=== PATIENT | male | born 1980 | race Caucasian/White ===

== ENCOUNTER 2020-07-14 18:16 | Emergency (ER) | payer MEDICAID ==
[~2020-07-14] VITALS: Ht 180.3 cm; Wt 103.0 kg
[2020-07-14] MEDS ORDERED: MORPHINE SULFATE 4 MG/ML, 1ML ONE ×2 (18:45→19:18)
[2020-07-14] MEDS ORDERED: ONDANSETRON 2MG/ML, 2ML ONE (18:45)
[2020-07-14] MEDS: MORPHINE SULFATE 4 MG/ML, 1ML IVPush PRN ×2 (18:48→19:20)
--- NOTE | 2020-07-14 18:55 | NUR ---
PIV PLACED BY [facility] GUIDE. MEDS ADMIN PER MAY. PT GOING TO XRAY.
[2020-07-14] MEDS ORDERED: ONDANSETRON 2MG/ML, 2ML IVPush ONE (19:00)
[2020-07-14] MEDS ORDERED: SODIUM CHLORIDE FLUSH 10ML SYR IVF ONE (19:00)
--- NOTE | 2020-07-14 19:23 | NUR ---
PT AMBULATED TO RESTROOM WITH STEADY GAIT TO PROVIDE URINE SAMPLE. UA COLLECTED AND SENT TO LAB. PT C/O 10/10 PAIN. 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 OXYGEN APPLIED FOR SAFETY. PT CONNECTED TO MONITORING.
[2020-07-14 19:38] LABS: MICROSCOPIC AUTO
--- NOTE | 2020-07-14 20:10 | NUR ---
ALL RESULTS ARE BACK AT THIS TIME. CHART UP FOR RECHECK.
--- NOTE | 2020-07-14 20:20 | NUR ---
PT STATES PAIN IS BETTER.
--- NOTE | 2020-07-14 20:53 | NUR ---
ERMD AT BEDSIDE TO UPDATE PT ON POC.
[2020-07-14] MEDS ORDERED: KETOROLAC 30 MG/1 ML IVPush ONE (21:00)
[2020-07-14] MEDS ORDERED: KETOROLAC 30 MG/1 ML ONE (21:02)
--- NOTE | 2020-07-14 21:07 | NUR ---
MEDS ADMIN PER MAY.
[2020-07-14 21:39] VITALS: BP 122/74
== END 2020-07-14 21:41 | disposition home or self-care (01) ==
LOC: ED 18:46
DX: N20.1 Calculus of ureter (principal); R31.9 Hematuria, unspecified; F17.200 Nicotine dependence, unspecified, uncomplicated
CPT/HCPCS: 74018; 81001; 96374; 96375; 96376; 99284; J1885; J2270; J2405

== ENCOUNTER 2020-11-16 06:30 | Inpatient (IN) | payer MEDICAID ==
[~2020-11-16] VITALS: Ht 180.3 cm; Wt 95.4 kg
[2020-11-16] MEDS ORDERED: CHLORHEXIDINE 15 ML UDC ONE (06:58)
[2020-11-16] MEDS ORDERED: LACTATED RINGERS 1,000 ML IV SCH (07:00)
[2020-11-16] MEDS ORDERED: CHLORHEXIDINE 15 ML UDC PO ONE (07:00)
[2020-11-16 07:42] VITALS: BP 99/68
[2020-11-16] MEDS ORDERED: NONE PER PT (07:42)
[2020-11-16] MEDS ORDERED: FENTANYL PF 250 MCG/5ML ONE (08:11)
[2020-11-16] MEDS ORDERED: PROPOFOL 10 MG/ML, 20ML ONE (08:12)
[2020-11-16] MEDS ORDERED: BUPIVACAINE/PF 0.25% ONE ×2 (08:12)
[2020-11-16] MEDS ORDERED: CEFAZOLIN 1,000 MG ONE (08:12)
[2020-11-16] MEDS ORDERED: GLYCOPYRROLATE 0.2MG/1ML, 5ML ONE (08:12)
[2020-11-16] MEDS ORDERED: NEOSTIGMINE 1 MG/ML, 10ML ONE (08:12)
[2020-11-16] MEDS ORDERED: ROCURONIUM 10MG/ML,5ML ONE ×2 (08:12→10:54)
[2020-11-16] MEDS ORDERED: EPINEPHRINE 1 MG/ML, 1ML ONE (09:36)
[2020-11-16] MEDS ORDERED: BUPIVACAINE/PF 0.5% ONE (09:36)
[2020-11-16] MEDS ORDERED: morphine SULFATE 10 MG/ML, 1ML IVPush PRN (10:00)
[2020-11-16] MEDS ORDERED: MEPERIDINE/PF 25MG/0.5ML IVPush PRN (10:00)
[2020-11-16] MEDS ORDERED: HYDROmorphone 1 MG/ML, 1ML INJ IVPush PRN (10:00)
[2020-11-16] MEDS ORDERED: FENTANYL PF 100 MCG/2ML IV PRN (10:00)
[2020-11-16] MEDS ORDERED: LABETALOL 5MG/ML, 20ML IV PRN (10:00)
[2020-11-16] MEDS ORDERED: hydrALAzine 20 MG/ML, 1ML IV PRN (10:00)
[2020-11-16] MEDS ORDERED: OXYcodone 5 MG/5 ML ORAL.SOL UDC PO PRN (10:00)
[2020-11-16] MEDS ORDERED: ACETAMINOPHEN 325 MG TABLET PO PRN (10:00)
[2020-11-16] MEDS ORDERED: ONDANSETRON 2MG/ML, 2ML IVPush PRN (10:00)
[2020-11-16] MEDS ORDERED: MIDAZOLAM 1 MG/ML, 2ML ONE (10:20)
[2020-11-16] MEDS ORDERED: FENTANYL PF 100 MCG/2ML ONE (13:51)
[2020-11-16] MEDS ORDERED: OXYcodone 5 MG/5 ML ORAL.SOL UDC ONE ×2 (13:51→13:59)
[2020-11-16] MEDS ORDERED: ACETAMINOPHEN 650 MG/20.3 ML UDC ONE (13:52)
[2020-11-16] MEDS ORDERED: KETOROLAC 30 MG/1 ML ONE (16:22)
[2020-11-16] MEDS: KETOROLAC 30 MG/1 ML IVPush SCH (16:26)
[2020-11-16] MEDS: CEFTRIAXONE 2 GM in SODIUM CHLORIDE 0.9% 50 ML IVPB SCH (16:26)
[2020-11-16 19:10] VITALS: BP 90/60
[2020-11-16] MEDS ORDERED: OXYcodone IR 5MG TABLET PO PRN (19:30)
[2020-11-16] MEDS ORDERED: KETOROLAC 30 MG/1 ML IVPush SCH (19:30)
[2020-11-16] MEDS ORDERED: DIPHENHYDRAMINE 50 MG/ML, 1ML IVPush PRN (19:30)
[2020-11-16] MEDS ORDERED: HALOPERIDOL 5 MG/ML IVPush PRN (19:30)
[2020-11-16] MEDS ORDERED: ONDANSETRON 2MG/ML, 2ML IV PRN (19:30)
[2020-11-16] MEDS ORDERED: DEXAMETHASONE 4 MG/ML, 1ML IVPush PRN (19:30)
[2020-11-16] MEDS ORDERED: LORazepam 1MG TABLET PO PRN (19:30)
[2020-11-16] MEDS ORDERED: CEFTRIAXONE 2 GM in DEXTROSE 5% 50 ML IV SCH (19:30)
[2020-11-16] MEDS ORDERED: LORazepam 2 MG/ML, 1ML IVPush PRN (19:30)
[2020-11-16] MEDS ORDERED: SCOPOLAMINE PATCH, 1.5MG PATCH.TD72 TD PRN (19:30)
[2020-11-16] MEDS ORDERED: TRAZODONE 50MG TABLET PO PRN (19:30)
[2020-11-16] MEDS ORDERED: CALCIUM CARBONATE 500 MG TAB.CHEW PO PRN (19:30)
[2020-11-16] MEDS ORDERED: DIPHENHYDRAMINE 25 MG CAPSULE PO PRN (19:30)
[2020-11-16] MEDS ORDERED: MORPHINE SULFATE 4 MG/ML, 1ML IVPush PRN ×2 (19:30→19:37)
[2020-11-16] MEDS ORDERED: SCOPOLAMINE 1MG PATCH TD PRN (20:00)
[2020-11-16] MEDS: ACETAMINOPHEN 500 MG TABLET PO SCH (20:32)
[2020-11-16] MEDS: LACTATED RINGERS 1,000 ML IV SCH (20:32)
[2020-11-17] VITALS: BP 90/56
[2020-11-17] MEDS: KETOROLAC 30 MG/1 ML IVPush SCH ×4 (00:43→19:39)
[2020-11-17] MEDS: ACETAMINOPHEN 500 MG TABLET PO SCH ×4 (02:23→21:26)
[2020-11-17 03:26] LABS: BASOPHILS % (AUTO) 1 % (0-1); EOSINOPHILS % (AUTO) 6 % (1-7); LYMPHOCYTES % (AUTO) 16 % (22-44); MEAN CORPUSCULAR HGB CONC 33.6 g/dL (33.2-36.2); MEAN PLATELET VOLUME 6.7 fL (7.4-10.4); MONOCYTES % (AUTO) 8 % (2-9); NEUTROPHILS % (AUTO) 69 % (42-75); PLATELET COUNT 306 x10^3/uL (130-400); RED CELL DISTRIBUTION WIDTH 14.8 % (9.4-14.8)
[2020-11-17 03:31] LABS: ANION GAP 4 mmol/L (5-15); CALCIUM 8.9 mg/dL (8.5-10.1); CHLORIDE 110 mmol/L (98-107); CREATININE 1.29 mg/dL (0.7-1.3)
[2020-11-17] MEDS ORDERED: OXYC-302 PO (07:14)
[2020-11-17] MEDS ORDERED: AMOX1TAB64 PO (07:14)
[2020-11-17 08:50] VITALS: BP 93/57
[2020-11-17 09:06] LABS: BASOPHILS % (AUTO) 1 % (0-1); EOSINOPHILS % (AUTO) 7 % (1-7); LYMPHOCYTES % (AUTO) 14 % (22-44); MEAN CORPUSCULAR HEMOGLOBIN 31.1 pg (27.5-34.5); MEAN CORPUSCULAR HGB CONC 33.3 g/dL (33.2-36.2); MEAN PLATELET VOLUME 6.9 fL (7.4-10.4); MONOCYTES % (AUTO) 7 % (2-9); NEUTROPHILS % (AUTO) 72 % (42-75); PLATELET COUNT 315 x10^3/uL (130-400); RED BLOOD COUNT 4.02 x10^6/uL (4.38-5.82); RED CELL DISTRIBUTION WIDTH 14.8 % (9.4-14.8)
[2020-11-17] MEDS: ENOXAPARIN 40 MG/0.4 ML SQ SCH (09:44)
[2020-11-17 14:39] VITALS: BP 97/62
[2020-11-17] MEDS: LACTATED RINGERS 1,000 ML IV SCH (16:01)
[2020-11-17] MEDS: CEFTRIAXONE 2 GM in SODIUM CHLORIDE 0.9% 50 ML IVPB SCH (16:02)
[2020-11-17 21:29] VITALS: BP 95/58
[2020-11-18] MEDS: KETOROLAC 30 MG/1 ML IVPush SCH ×4 (01:04→19:00)
[2020-11-18 01:55] VITALS: BP 99/58
[2020-11-18 02:54] LABS: BASOPHILS % (AUTO) 1 % (0-1); EOSINOPHILS % (AUTO) 9 % (1-7); LYMPHOCYTES % (AUTO) 21 % (22-44); MEAN CORPUSCULAR HEMOGLOBIN 30.6 pg (27.5-34.5); MEAN CORPUSCULAR HGB CONC 33.2 g/dL (33.2-36.2); MEAN PLATELET VOLUME 6.8 fL (7.4-10.4); MONOCYTES % (AUTO) 7 % (2-9); NEUTROPHILS % (AUTO) 63 % (42-75); PLATELET COUNT 294 x10^3/uL (130-400); RED BLOOD COUNT 3.75 x10^6/uL (4.38-5.82); RED CELL DISTRIBUTION WIDTH 14.6 % (9.4-14.8)
[2020-11-18] MEDS: ACETAMINOPHEN 500 MG TABLET PO SCH ×3 (02:56→14:35)
[2020-11-18 03:05] LABS: ANION GAP 4 mmol/L (5-15); CALCIUM 8.5 mg/dL (8.5-10.1); CHLORIDE 109 mmol/L (98-107); CREATININE 1.08 mg/dL (0.7-1.3)
[2020-11-18 06:38] VITALS: BP 107/64
[2020-11-18] MEDS: ENOXAPARIN 40 MG/0.4 ML SQ SCH (09:20)
[2020-11-18 10:21] LABS: ANION GAP 4 mmol/L (5-15); CALCIUM 8.8 mg/dL (8.5-10.1); CHLORIDE 110 mmol/L (98-107); CREATININE 1.04 mg/dL (0.7-1.3)
[2020-11-18] MEDS: LACTATED RINGERS 1,000 ML IV SCH (11:30)
[2020-11-18 13:29] VITALS: BP 102/64
[2020-11-18] MEDS: CEFTRIAXONE 2 GM in SODIUM CHLORIDE 0.9% 50 ML IVPB SCH (15:35)
[2020-11-18 17:12] VITALS: BP 110/70
== END 2020-11-18 18:30 | disposition home or self-care (01) | DRG 333 ==
LOC: ORIP 06:30 → 4NE 17:33
PROVIDERS: ADMIT Colon & Rectal Surgery; ATTEND Colon & Rectal Surgery
PROC: 0D9Q0ZZ Drainage of Anus, Open Approach (ICD-10-PCS; 2020-11-16)
PROC: 8E0W0CZ Robotic Assisted Procedure of Trunk Region, Open Approach (ICD-10-PCS; 2020-11-16)
PROC: 0DBP0ZZ Excision of Rectum, Open Approach (ICD-10-PCS; principal; 2020-11-16 08:45)
DX: K51.90 Ulcerative colitis, unspecified, without complications (principal); K61.0 Anal abscess; Z20.822 Contact with and (suspected) exposure to COVID-19; Z93.2 Ileostomy status
CPT/HCPCS: 36415; S0020; 80048; 83735; 85025; 86850; 86900; 87635; 88307; G0378; J0171; J0690; J0696; J1650; J1885; J2250; J2704; J2710; J3010; J7120